=== PATIENT | female | born 1990 | race Two or more races ===

== ENCOUNTER 2019-10-04 12:17 | Inpatient (IN) | payer BC, SELFPAY ==
[2019-10-04] MEDS ORDERED: Sodium Chloride 0.9% 10 ML Syringe FLUSH PRN (12:25)
[2019-10-04] MEDS ORDERED: Lidocaine 1% 50 ML MDV INJECT ONE (12:25)
[2019-10-04] MEDS ORDERED: Acetaminophen 325 MG Tab PO PRN (12:25)
[2019-10-04] MEDS ORDERED: Ondansetron 4 MG/2 ML SDV IVPUSH PRN (12:25)
[2019-10-04] MEDS ORDERED: Calcium Carbonate 500 MG Tab.Chew PO PRN (12:25)
[2019-10-04] MEDS ORDERED: Oxytocin/Lactated Ringers 10 UNIT/1,000 ML BAG IV SCH ×2 (12:30)
[2019-10-04] MEDS: Misoprostol 25 MCG (1/4 of 100 MCG) Tab PO SCH ×3 (14:29→23:27)
--- NOTE | 2019-10-04 15:37 | PCM.LDHP ---
L&D History of Present Illness - General Date of Service: 10/04/19 Admit Problem/Dx: Patient Status Order with Admit Dx/Problem 10/04/19 12:25 Patient Status [ADT] Routine Admission Diagnosis/Problem Admission Diagnosis/Problem - History of Present Illness Introduction:: 28 year old at 40w1 here for induction of labor secondary to decreased movement post ADI with diet controlled gestational diabetes. 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/Metabolic History: Reports: Diabetes, Gestational Social & Family History - Family History Family Medical History: Noncontributory - Tobacco Use Smoking Status *Q: Never Smoker Second Hand Smoke Exposure: No - Recreational Drug Use Recreational Drug Use: No H&P Review of Systems - Review of Systems: Review Of Systems: See Below General: Reports: No Symptoms HEENT: Reports: No Symptoms Pulmonary: Reports: No Symptoms Cardiovascular: Reports: No Symptoms Gastrointestinal: Reports: No Symptoms Genitourinary: Reports: No Symptoms Musculoskeletal: Reports: No Symptoms Skin: Reports: No Symptoms Psychiatric: Reports: No Symptoms Neurological: Reports: No Symptoms Hematologic/Lymphatic: Reports: No Symptoms Immunologic: Reports: No Symptoms L&D Exam - Exam Exam: See Below - Vital Signs Weight: 124.284 kg - OB Specific Contraction Intensity: Mild to Moderate Movement: Active Heart Tones: Present Presentation: Vertex - Smalls Score Smalls Score Cervix Position: Midposition Smalls Score Consistency: Medium Smalls Score Effacement: 51-70% Smalls Score Dilation: 1-2 cm Smalls Score Infant's Station: -3 Smalls Score Total: 5 - Exam General: Alert, Oriented HEENT: PERRLA, Conjunctiva Clear, EACs Clear, EOMI, Hearing Intact, Mucosa Moist & [place], Nares Patent, Normal Nasal Septum, Posterior Pharynx Clear, TMs Clear Neck: Supple, Trachea Midline Lungs: Clear to Auscultation, Normal Respiratory Effort Cardiovascular: Regular Rate, Regular Rhythm GI/Abdominal Exam: Normal Bowel Sounds, Soft, Non-Tender, No Organomegaly, No Distention, No Abnormal Bruit, No Mass, Pelvis Stable Extremities: Normal Inspection, Normal Range of Motion, Non-Tender, No Pedal Edema, Normal Capillary Refill Skin: Warm, Dry, Intact Neurological: Cranial Nerves Intact, Reflexes Equal Bilateral Psychiatric: Alert, Normal Affect, Normal Mood - Patient Data Lab Results Last 24 hrs: Laboratory Results - last 24 hr 10/04/19 10/04/19 10/04/19 Range/Units 12:46 12:46 13:25 WBC 8.81 (3.98-10.04) K/mm3 RBC 4.32 (3.98-5.22) M/mm3 Hgb 11.1 L (11.2-15.7) gm/dl Hct 35.1 (34.1-44.9) % MCV 81.3 (79.4-94.8) fl MCH 25.7 (25.6-32.2) pg MCHC 31.6 L (32.2-35.5) g/dl RDW Std Deviation 43.1 (36.4-46.3) fL Plt Count 308 (182-369) K/mm3 MPV 10.3 (9.4-12.3) fl Neut % (Auto) 76.0 H (34.0-71.1) % Lymph % (Auto) 18.6 L (19.3-51.7) % [place] % (Auto) 4.5 L (4.7-12.5) % Eos % (Auto) 0.6 L (0.7-5.8) Baso % (Auto) 0.1 (0.1-1.2) % Neut # (Auto) 6.69 H (1.56-6.13) K/mm3 Lymph # (Auto) 1.64 (1.18-3.74) K/mm3 [place] # (Auto) 0.40 H (0.24-0.36) K/mm3 Eos # (Auto) 0.05 (0.04-0.36) K/mm3 Baso # (Auto) 0.01 (0.01-0.08) K/mm3 COVID-19 ([facility]) Negative (NEGATIVE) Blood Type O POSITIVE Gel Antibody Screen Negative Result Diagrams: 10/04/19 12:46 Problem List Initiated/Reviewed/Updated: Yes Orders Last 24hrs: Active Orders 24 hr Category Date Time Status Patient Status [ADT] Routine ADT 10/04/19 12:25 Active Activity as Tolerated [RC] PFP Care 10/04/19 12:25 Active Blood Glucose Check, Bedside [RC] TIDAC Care 10/04/19 12:32 Active Communication Order [RC] ASDIRECTED Care 10/04/19 12:25 Active Heart Tones [RC] ASDIRECTED Care 10/04/19 12:26 Active Non Stress Test [RC] PER UNIT ROUTINE Care 10/04/19 12:25 Active Notify Provider [RC] PFP Care 10/04/19 12:25 Active Notify Provider [RC] PRN Care 10/04/19 12:25 Active Peripheral IV Care [RC] . DIRECTED Care 10/04/19 12:26 Active Vital Signs [RC] PER UNIT ROUTINE Care 10/04/19 12:25 Active Regular Diet [DIET] Diet 10/04/19 Dinner Active PATIENT RETYPE [BBK] Routine Lab 10/04/19 14:04 Ordered RAPID PLASMA REAGIN,RPR [CHEM] Routine Lab 10/04/19 12:46 Received Acetaminophen [Tylenol] Med 10/04/19 12:25 Active 650 mg PO Q4H PRN Calcium Carbonate [Tums] Med 10/04/19 12:25 Active 1,000 mg PO Q2H PRN Lactated Ringers [Ringers, Lactated] 1,000 ml Med 10/04/19 12:30 Active IV ASDIRECTED Nalbuphine [Nubain] Med 10/04/19 12:25 Active 10 mg IVPUSH Q2H PRN Ondansetron [Zofran] Med 10/04/19 12:25 Active 4 mg IVPUSH Q4H PRN Oxytocin/Lactated Ringers [Pitocin in LR 10 Units/1,000 Med 10/04/19 12:30 Active ML] 10 unit in 1,000 ml IV .CONTINUOUS Oxytocin/Lactated Ringers [Pitocin in LR 10 Units/1,000 Med 10/04/19 12:30 Active ML] 10 unit in 1,000 ml IV .CONTINUOUS Sodium Chloride 0.9% [Saline Flush] Med 10/04/19 12:25 Active 10 ml FLUSH ASDIRECTED PRN miSOPROStoL [Cytotec] Med 10/04/19 14:30 Active 25 mcg PO Q4H Electronic Heart Tones Ext w TOCO [WOMSER] Ot 10/04/19 12:25 Ordered Routine Electronic Heart Tones Internal [WOMSER] Per Unit Ot 10/04/19 12:25 Ordered Routine Peripheral IV Insertion Adult [OM.PC] Routine Ot 10/04/19 12:25 Ordered Resuscitation Status Routine Resus Stat 10/04/19 12:25 Ordered Medication Orders Acetaminophen (Tylenol) 650 mg PO Q4H PRN PRN Reason: Pain (Mild 1-3) and fever Calcium Carbonate/Glycine (Tums) 1,000 mg PO Q2H PRN PRN Reason: Indigestion Oxytocin/Lactated Ringer's (Pitocin In Lr 10 Units/1,000 Ml) 10 unit in 1,000 mls @ 100 mls/hr IV .CONTINUOUS KAMARI Oxytocin/Lactated Ringer's (Pitocin In Lr 10 Units/1,000 Ml) 10 unit in 1,000 mls @ 500 mls/hr IV .CONTINUOUS KAMARI Lactated Ringer's (Ringers, Lactated) 1,000 mls @ 100 mls/hr IV ASDIRECTED [facility] Misoprostol (Cytotec) 25 mcg PO Q4H KAMARI Stop: 10/04/19 22:31 Last Admin: 10/04/19 14:29 Dose: 25 mcg Documented by: ELISEO Nalbuphine HCl (Nubain) 10 mg IVPUSH Q2H PRN PRN Reason: Pain Ondansetron HCl (Zofran) 4 mg IVPUSH Q4H PRN PRN Reason: Nausea/Vomiting Sodium Chloride (Saline Flush) 10 ml FLUSH ASDIRECTED PRN PRN Reason: Keep Vein Open Assessment/Plan Comment:: Induction for gestational diabetes and elevated blood pressures. AROM and cytotec Anesthesia consult
[2019-10-04] MEDS ORDERED: fentaNYL 100 MCG/2 ML SDV EPIDUR PRN (19:46)
[2019-10-04] MEDS ORDERED: ePHEDrine 50 MG/ML SDV IVPUSH PRN (19:46)
[2019-10-04] MEDS ORDERED: diphenhydrAMINE 50 MG/ML SDV IVPUSH PRN (19:46)
[2019-10-04] MEDS ORDERED: Bupivacaine/fentaNYL/NS 100 ML Bag EPIDUR PRN (19:46)
--- NOTE | 2019-10-04 19:46 | PCM.PREANE ---
Preanesthetic Assessment - Procedure Proposed Procedure: Labor Epidural - Anesthesia/Transfusion/Family Hx Anesthesia History: No Prior Anesthesia Transfusion History: No Prior Transfusion(s) - Review of Systems General: No Symptoms Pulmonary: No Symptoms Cardiovascular: No Symptoms Gastrointestinal: No Symptoms Neurological: No Symptoms Other: Reports: None (Morbid Obesity BMI 50), Diabetes - Physical Assessment Vital Signs: Last Vital Signs Temp 36.3 C 10/04/19 12:25 Pulse 94 10/04/19 12:25 Resp 16 10/04/19 12:25 BP 118/54 L 10/04/19 12:25 Pulse Ox 98 10/04/19 12:25 Height: 1.57 m Weight: 124.284 kg ASA Class: 3 Mental Status: Alert & Oriented x3 Airway Class: Mallampati = 2 Dentition: Reports: Normal Dentition Thyro-Mental Finger Breadths: 3 Mouth Opening Finger Breadths: 3 ROM/Head Extension: Full Lungs: Clear to Auscultation, Normal Respiratory Effort Cardiovascular: Regular Rate, Regular Rhythm - Lab Values: Laboratory Last Values WBC 8.81 K/mm3 (3.98-10.04) 10/04/19 12:46 RBC 4.32 M/mm3 (3.98-5.22) 10/04/19 12:46 Hgb 11.1 gm/dl (11.2-15.7) L 10/04/19 12:46 Hct 35.1 % (34.1-44.9) 10/04/19 12:46 MCV 81.3 fl (79.4-94.8) 10/04/19 12:46 MCH 25.7 pg (25.6-32.2) 10/04/19 12:46 MCHC 31.6 g/dl (32.2-35.5) L 10/04/19 12:46 RDW Std Deviation 43.1 fL (36.4-46.3) 10/04/19 12:46 Plt Count 308 K/mm3 (182-369) 10/04/19 12:46 MPV 10.3 fl (9.4-12.3) 10/04/19 12:46 Neut % (Auto) 76.0 % (34.0-71.1) H 10/04/19 12:46 Lymph % (Auto) 18.6 % (19.3-51.7) L 10/04/19 12:46 [place] % (Auto) 4.5 % (4.7-12.5) L 10/04/19 12:46 Eos % (Auto) 0.6 (0.7-5.8) L 10/04/19 12:46 Baso % (Auto) 0.1 % (0.1-1.2) 10/04/19 12:46 Neut # (Auto) 6.69 K/mm3 (1.56-6.13) H 10/04/19 12:46 Lymph # (Auto) 1.64 K/mm3 (1.18-3.74) 10/04/19 12:46 [place] # (Auto) 0.40 K/mm3 (0.24-0.36) H 10/04/19 12:46 Eos # (Auto) 0.05 K/mm3 (0.04-0.36) 10/04/19 12:46 Baso # (Auto) 0.01 K/mm3 (0.01-0.08) 10/04/19 12:46 POC Glucose 74 mg/dL (70-105) 10/04/19 15:26 COVID-19 ([facility]) Negative (NEGATIVE) 10/04/19 13:25 Blood Type O POSITIVE 10/04/19 12:46 Gel Antibody Screen Negative 10/04/19 12:46 - Allergies Allergies/Adverse Reactions: Allergies Allergy/AdvReac Type Severity Reaction Status Date / Time No Known Allergies Allergy Verified 10/04/19 12:25 - Acknowledgements Anesthesia Type Planned: Epidural Pt an Appropriate Candidate for the Planned Anesthesia: Yes Alternatives and Risks of Anesthesia Discussed w Pt/Guardian: Yes Pt/Guardian Understands and Agrees with Anesthesia Plan: Yes Additional Comments: Wilfrido understands an epidural placement may be challenging as bony landmarks are unable to be palpated, and multiple attempts with out success may occur. All questions answered at this time. She currently desires a natural and has been counseled on the requesting an epidural placement early to assist with proper positioning and placement. 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/Metabolic History: Reports: Diabetes, Gestational - SUBSTANCE USE Smoking Status *Q: Never Smoker Second Hand Smoke Exposure: No Recreational Drug Use History: No - HOME MEDS Home Medications: Home Meds Prenat 115/Iron Fum/Folic/Dss [ 19 Tablet] 1 each PO DAILY 10/04/19 [History] - CURRENT (IN HOUSE) MEDS Current Meds: Current Medications Acetaminophen (Tylenol) 650 mg PO Q4H PRN PRN Reason: Pain (Mild 1-3) and fever Calcium Carbonate/Glycine (Tums) 1,000 mg PO Q2H PRN PRN Reason: Indigestion Oxytocin/Lactated Ringer's (Pitocin In Lr 10 Units/1,000 Ml) 10 unit in 1,000 mls @ 100 mls/hr IV .CONTINUOUS KAMARI Oxytocin/Lactated Ringer's (Pitocin In Lr 10 Units/1,000 Ml) 10 unit in 1,000 mls @ 500 mls/hr IV .CONTINUOUS KAMARI Lactated Ringer's (Ringers, Lactated) 1,000 mls @ 100 mls/hr IV ASDIRECTED KAMARI Misoprostol (Cytotec) 25 mcg PO Q4H KAMARI Stop: 10/04/19 22:31 Last Admin: 10/04/19 18:32 Dose: 25 mcg Documented by: Nalbuphine HCl (Nubain) 10 mg IVPUSH Q2H PRN PRN Reason: Pain Ondansetron HCl (Zofran) 4 mg IVPUSH Q4H PRN PRN Reason: Nausea/Vomiting Sodium Chloride (Saline Flush) 10 ml FLUSH ASDIRECTED PRN PRN Reason: Keep Vein Open Discontinued Medications Lidocaine HCl (Xylocaine 1%) 50 ml INJECT ONETIME ONE Stop: 10/04/19 12:26
[2019-10-05] MEDS: Lactated Ringers 1,000 ML IV SCH ×3 (00:52→10:09)
[2019-10-05] MEDS ORDERED: Oxytocin/Lactated Ringers 10 UNIT/1,000 ML BAG IV SCH (01:30)
[2019-10-05] MEDS: Nalbuphine 10 MG/ML Syringe IVPUSH PRN ×2 (04:49→10:10)
--- NOTE | 2019-10-05 09:55 | PCM.SN.2 ---
- Free Text/Narrative Note: Wilfrido 's 28-year-old 1 para 0 female was admitted on 10/04/2019 with diagnosis of decreased activity and underwent induction of labor with Pitocin and artificial rupture membranes. Artificial rupture membranes was at approximately 1400 hrs. on 10/04/2019. Since that time patient has made slow progress but presently is at 4 cm, 95% effacement, -2 station, cephalic presentation, anterior position, very soft consistency. heart tones are generally reassuring area. Patient has had fairly good pain relief with Nubain IV. She wishes to do a natural labor. Assessment: 1. 40-2/7 week gestational age female with slow labor progress but with dilation of cervix as above. 2. Patient desires natural labor course but has had some Nubain IV with good relief 3. Group B strep screen negative 4. Vital signs been stable. Patient is afebrile. Plan: 1. Routine labor care. Monitor heart tones and contractions closely. IUPC is in place. 2. Monitor for onset of any infection symptoms. 3. Anticipate .
[2019-10-05] MEDS ORDERED: Citric Acid/Sodium Citrate Solution 30 ML Cup ONE (15:42)
[2019-10-05] MEDS ORDERED: Metoclopramide 10 MG/2 ML SDV ONE (15:42)
[2019-10-05] MEDS ORDERED: Ondansetron 4 MG/2 ML SDV ONE (15:57)
[2019-10-05] MEDS ORDERED: Oxytocin 10 Units/1 ML SDV ONE (15:57)
[2019-10-05] MEDS ORDERED: Morphine PF 1 MG/ML Amp ONE (15:57)
[2019-10-05] MEDS ORDERED: Ketorolac 30 MG/ML SDV ONE (15:57)
[2019-10-05] MEDS ORDERED: Lactated Ringers 2,000 ML ONE (15:57)
[2019-10-05] MEDS ORDERED: ceFAZolin 1 GM Vial ONE ×2 (15:57→15:58)
--- NOTE | 2019-10-05 15:57 | PCM.SN.2 ---
- Free Text/Narrative Note: Progress note: Wilfrido is a 28-year-old 1 para 0 female who has been in labor since yesterday 10/04/2019. She was seen in clinic at that time and was noted to have decreased movement. She is gestational diabetic. She underwent induction of labor with AROM and Pitocin. She progressed steadily to approximately 6-8 cm and then more slowly to what is now probably 9 cm. Slow progression of labor is somewhat worrisome because of the confirmed adequacy of labor with IUPC and the amount of time3-4 hours necessary to achieve the last bit of cervical dilation. She now appears somewhat stalled at this cervical dilation. The head is at about a 0 station with significant caput formation. Clinical exam shows the pelvis is reasonably filled with the baby's head with what was felt to be possibly less than optimal AP diameter. This is felt to increase the potential risks for shoulder dystocia. Discussion is held with patient has to concerns listed above. I have discussed the option of primary section through Pfannenstiel incision under a regional block, risks, benefits, follow-up and postoperative course. She appears to understand and wishes to proceed. Consent is signed. Assessment: 1. 40+ week intrauterine , failure to progress, history of gestational diabetes with suspected large baby. Patient desires section at this time. 2. Risks include the following: Gestational diabetes, obesity Plan: 1. Preop labs to be completed 2. Ancefweight appropriate dose to be given 3. SCDs prior to surgery for DVT prophylaxis 4. Dr. Rogel to attend as software deployment engineer.
[2019-10-05] MEDS ORDERED: Bupivacaine 0.75%/D5W 2 ML Amp ONE (15:58)
[2019-10-05] MEDS ORDERED: Bupivacaine 0.5% 30 ML SDV ONE (16:00)
[2019-10-05] MEDS ORDERED: Azithromycin 500 MG in Sodium Chloride 0.9% 250 ML IV ONE (16:10)
[2019-10-05] MEDS ORDERED: diphenhydrAMINE 50 MG/ML SDV IVPUSH PRN ×3 (17:10→19:17)
[2019-10-05] MEDS ORDERED: Ondansetron 4 MG/2 ML SDV IVPUSH PRN (17:10)
[2019-10-05] MEDS ORDERED: fentaNYL 100 MCG/2 ML SDV IVPUSH PRN (17:10)
[2019-10-05] MEDS ORDERED: Lactated Ringers 1,000 ML ONE (17:17)
--- NOTE | 2019-10-05 17:53 | PCM.POSTAN ---
POST ANESTHESIA ASSESSMENT - MENTAL STATUS Mental Status: Alert, Oriented - VITAL SIGNS Vital Signs: Last Vital Signs Temp 36.3 C 10/04/19 12:25 Pulse 94 10/04/19 12:25 Resp 16 10/04/19 12:25 BP 118/54 L 10/04/19 12:25 Pulse Ox 98 10/04/19 12:25 1745 90/41 97 100% 18 99.2F - RESPIRATORY Respiratory Status: Respiratory Rate WNL, Airway Patent, O2 Saturation Stable - CARDIOVASCULAR CV Status: Pulse Rate WNL, Blood Pressure Stable - GASTROINTESTINAL GI Status: No Symptoms - PAIN Pain Score: 0 - POST OP HYDRATION Hydration Status: Adequate & Stable
--- NOTE | 2019-10-05 17:56 | PCM.OPNOTE ---
- General Post-Op/Procedure Note Date of Surgery/Procedure: 10/05/19 Operative Procedure(s): Primary lower uterine segment transverse section through Pfannenstiel skin incision under spinal block. Findings: Uterus tubes ovaries appeared be normal for term . Significant adiposit y involving the anterior abdominal wall. The baby was in a vertex presentation. Amniotic fluid was clear. Baby weighed 8 lbs. 9 oz (3883 g), was born at 1700 hrs. on 10/05/2019. There was a nuchal cord 1. Baby's head was in an occiput transverse position. Pre Op Diagnosis: 1. 40+ week intrauterine . 2. Failure to progress. 3. Gestational diabetes Post-Op Diagnosis: Same Anesthesia Technique: Spinal Other Anesthesia Type: Marcaine 0.5%20 mL totallocal Primary Surgeon: Eduin Torrez Anesthesia Provider: Ginger Bryant Ride Operator: Nikki Lo Reason Ride Operator Was Necessary: Assistance, retraction, patient safety, quantity of care. Fluid Replacement, Intraop: 2,000 Output, Urine Amount: 200 EBL in mLs: 800 Drain/Tube Comments:: Indwelling bladder catheter Complications: None Condition: Good Free Text/Narrative:: Intake & Output 10/05/19 10/05/19 10/05/19 06:59 14:59 22:59 Intake Total 1999 Balance 1999 Surgery duration: 44 minutes Surgery duration: Procedure: The patient is appropriately consented. Patient was transferred to the room and placed in a sitting position. Spinal anesthesia was administered. After confirmation of adequate anesthesia patient was placed in a supine position with a wedge under her right side to facilitate left lateral positioning. C track panniculus retractor was then applied. The patient was prepped and draped in usual fashion after Lazaro catheter was already placed . The anesthetic was checked and found to be adequate. 20 mL of Marcaine 0.5% was injected locally in the Pfannenstiel incision site. The Pfannenstiel skin i ncision was then made and carried down through skin, subcutaneous and fascial layers. The fascia was then undermined superiorly and inferiorly to allow for adequate operating room. The recti muscles midline and preperitoneal fat was bluntly dissected. Peritoneal cavity was entered longitudinally. The vesicouterine peritoneum was then incised transversely and bladder flap was developed. Myometrium was incised transversely to the level of the amniotic sac. This incision was extended bilaterally in a blunt fashion. The amniotic sac was then ruptured resulting in clear amniotic fluid. A hand is placed in the low uterine segment and the baby's head was brought forth through the incision. The baby was completely delivered using fundal pressure in a routine fashion. The nose and mouth were bulb suctioned. Baby's cord was clamped x2 cut and baby was handed off to attending job lithographer Dr Rogel. Placenta was expressed after cord blood was obtained. All fragments of the membranes were removed under direct visualization. Uterus was then exteriorized to allow for easier closure. The cervix was assessed and found to be dilated adequately to allow egress of blood. The uterus was closed in 2 layers. The first layer a running locked suture of 0 Monocryl, the second layer a running locked vertical mattress suture of 0 Monocryl. [id number] suture was placed at mid incision to control 1 bleeder. Hemostasis confirmed at this time. Sponge instrument needle counts are correct. The uterus was returned to the abdominal cavity and lateral gutters were cleared of blood. Once again sponge needle counts are correct. The anterior abdominal wall was closed with a #1 PDS suture from angle to angle. The subcutaneous area was found to be free of any bleeders. interrupted sutures of 3-0 Monocryl were used to reapproximate the subcutaneous layer.Skin was closed with a running subcuticular stitch of 3-0 Monocryl in a vertical mattress suture fashion using a Vasyl needle. Prineo mesh/glue was then applied to further approximate the incision. It should be noted that patient received 3 g of Ancef and azithromycin IV per protocol preoperatively for infection prophylaxis and had Pitocin infused after delivery of the placenta to facilitate uterine contraction. She also had sequential compression stockings in place for DVT prophylaxis. Patient was discharged from the operating room in satisfactory condition.
[2019-10-05] MEDS ORDERED: ePHEDrine 50 MG/ML SDV IVPUSH PRN ×2 (19:17)
[2019-10-05] MEDS ORDERED: Naloxone 0.4 MG/ML SDV IVPUSH PRN ×2 (19:17)
[2019-10-05] MEDS ORDERED: Dextrose 5%-Lactated Ringers 1,000 ML IV SCH ×2 (19:17)
[2019-10-05] MEDS ORDERED: Ondansetron 4 MG/2 ML SDV IV PRN (19:17)
[2019-10-05] MEDS: Simethicone 80 MG Tab.Chew PO SCH (20:51)
[2019-10-05] MEDS ORDERED: Citric Acid/Sodium Citrate Solution 30 ML Cup PO ONE (21:21)
[2019-10-05] MEDS ORDERED: Metoclopramide 10 MG/2 ML SDV IVPUSH ONE (21:21)
[2019-10-05] MEDS: Ibuprofen 800 MG Tab PO SCH (22:15)
[2019-10-06] MEDS ORDERED: Lactated Ringers 1,000 ML IV ONE (01:16)
[2019-10-06] MEDS: Ibuprofen 800 MG Tab PO SCH ×3 (05:53→22:01)
[2019-10-06] MEDS: Prenatal Multivitamin with Calcium/Folic Acid/Iron Tab PO SCH (09:17)
[2019-10-06] MEDS: Docusate Sodium 100 MG Cap PO PRN (09:17)
[2019-10-06] MEDS: Acetaminophen/oxyCODONE 325-5 MG Tab PO PRN ×2 (09:18→18:37)
[2019-10-06] MEDS: Simethicone 80 MG Tab.Chew PO SCH ×4 (09:20→22:01)
[2019-10-07] MEDS: Acetaminophen/oxyCODONE 325-5 MG Tab PO PRN ×4 (03:28→22:17)
[2019-10-07] MEDS: Ibuprofen 800 MG Tab PO SCH ×3 (06:58→21:12)
--- NOTE | 2019-10-07 07:33 | PCM48HPAN ---
Post Anesthesia Note - EVALUATION WITHIN 48HRS OF ANESTHETIC Vital Signs in Normal Range: Yes Patient Participated in Evaluation: Yes Respiratory Function Stable: Yes Airway Patent: Yes Cardiovascular Function Stable: Yes Hydration Status Stable: Yes Pain Control Satisfactory: Yes Nausea and Vomiting Control Satisfactory: Yes Mental Status Recovered: Yes Vital Signs: Last Vital Signs Temp 97.9 F 10/07/19 03:21 Pulse 109 H 10/07/19 03:21 Resp 16 10/07/19 03:21 BP 114/46 L 10/07/19 03:21 Pulse Ox 99 10/07/19 03:21 - COMMENTS/OBSERVATIONS Free Text/Narrative:: Rests in bed. no complaints
[2019-10-07] MEDS: Prenatal Multivitamin with Calcium/Folic Acid/Iron Tab PO SCH (08:11)
[2019-10-07] MEDS: Simethicone 80 MG Tab.Chew PO SCH ×4 (08:11→21:12)
[2019-10-07] MEDS: Docusate Sodium 100 MG Cap PO PRN (08:14)
--- NOTE | 2019-10-07 09:31 | PCM.SN.2 ---
- Free Text/Narrative Note: note: Patient is doing well in the period. Minimal lochia, voiding well, ambulated without problems. Nursing without concerns. Patient reports pain is under good control. Baby still on antibiotics but hopefully will be off today. Patient is afebrile, vital signs are stable Abdomen is flat, soft, uterus is below the umbilicus and is firm and nontender. Incision shows the area of the perineal mesh to be dry and intact. Legs are nontender. 1+ pitting edema noted bilaterally Assessment: /post operative day #1 recovery going well. Plan: Routine care. Patient be discharged home within the next 24-48 hours.
[2019-10-08] MEDS: Acetaminophen/oxyCODONE 325-5 MG Tab PO PRN ×2 (03:50→11:01)
[2019-10-08] MEDS: Ibuprofen 800 MG Tab PO SCH (06:16)
[2019-10-08] MEDS: Prenatal Multivitamin with Calcium/Folic Acid/Iron Tab PO SCH (09:18)
[2019-10-08] MEDS: Simethicone 80 MG Tab.Chew PO SCH (09:18)
--- NOTE | 2019-10-08 10:55 | PCM.DCSUM1 ---
Discharge Summary - Hospital Course Free Text/Narrative:: Wilfrido was admitted on 10/04/2019 for induction of labor secondary by Dr. Ely Winters for 39 weeks gestational age and history of gestational diabetes. She underwent induction of labor which was a slow process and patient proceeded to approximately 8-9 cm by the noon of 10/05/2019 at that time she stalled for approximately 3-4 hours despite objectively evaluated adequate labor. Decision was made to proceed to section with the diagnosis of failure to progress secondary to cephalopelvic disproportion in light of the patient's diagnosis of gestational diabetes and her body habitus. She underwent a primary lower uterine segment transverse section through Pfannenstiel skin incision under spinal block. At the time surgery findings were as follows: Uterus tubes ovaries appeared be normal for term . Significant adiposity involving the anterior abdominal wall. The baby was in a vertex presentation. Amniotic fluid was clear. Baby weighed 8 lbs. 9 oz (3883 g), was born at 1700 hrs. on 10/05/2019. There was a nuchal cord 1. Baby's head was in an occiput transverse position. Post op Diagnosis: 1. 40+ week intrauterine . 2. Failure to progress. 3. Gestational diabetes Postoperative patient is done very well. Her vital signs are stable. She is afebrile. Abdominal incision is healing very well. Prineo mesh is in place over the abdominal incision. The incision appears intact without any evidence of infection, discharge, hematoma or seroma. She is nursing without problems, ambulating well and has minimal lochia. She has pain well controlled with ibuprofen and Percocet. She is desiring discharge home on postoperative day 3. Diagnosis: Stroke: No - Discharge Data Discharge Date: 10/08/19 Discharge Disposition: Home, Self-Care 01 Condition: Good - Referral to Home Health Primary Care Physician: Ely Winters MD - Patient Summary/Data Operative Procedure(s) Performed: Primary lower uterine segment transverse section through Pfannenstiel skin incision under spinal block. - Patient Instructions Diet: Regular Diet as Tolerated (Nursing diet with increased calories and calcium as recommended) Diet, Other: Nursing diet Activity: As Tolerated, No Strenuous Activities Driving: Do Not Drive Driving, Other: Do not drive while on narcotic Showering/Bathing: May Shower, No Tub Bathing/Swimming Wound/Incision Care: Keep Operative Site/Wound Site Clean and Dry Notify Provider of: Fever, Increased Pain, Swelling and Redness, Drainage, Nausea and/or Vomiting - Discharge Plan Home Medications: Home Meds Prenat 115/Iron Fum/Folic/Dss [ 19 Tablet] 1 each PO DAILY 10/04/19 [History] Patient Handouts: Care After Delivery, Breast Pumping Tips, [id number] Referrals: Ely Winters MD [Primary Care Provider] - (Call [facility] to make follow up appointment in 2 weeks) - Discharge Summary/Plan Comment DC Time >30 min.: No Discharge Summary/Plan Comment: Discharge instructions: 1. Discharge home 2. Diet, activity and follow-up discussed with patient. Recommend nursing diet with increased calories and calcium. 3. Precautions given concern increased pain, bleeding, temperature, signs/symptoms of DVT/PE. 4. Medications per home medication was printed, discussed with and given to the patient. 5. Return to clinic-Dr. Winters at to call for an appointment. Diagnosis: 1. Term -delivered by primary low uterine segment transverse section through Pfannenstiel skin incision under spinal block. Diagnosis failure to progress secondary to cephalopelvic disproportion. Condition: Good - Patient Data Vitals - Most Recent: Last Vital Signs Temp 36.6 C 10/08/19 08:21 Pulse 77 10/08/19 08:21 Resp 18 10/08/19 08:21 BP 128/50 L 10/08/19 08:21 Pulse Ox 100 10/08/19 08:21 Weight - Most Recent: 124.284 kg I&O - Last 24 hours: Intake & Output 10/07/19 10/08/19 10/08/19 22:59 06:59 14:59 Intake Total 360 Balance 360 Med Orders - Current: Current Medications Diphenhydramine HCl (Benadryl) 25 mg IVPUSH Q6H PRN PRN Reason: Itching or Nausea Docusate Sodium (Colace) 100 mg PO Q12H PRN PRN Reason: Constipation Last Admin: 10/07/19 08:14 Dose: 100 mg Documented by: Ephedrine Sulfate (Ephedrine Sulfate) 5 mg IVPUSH SEECOMMENT PRN PRN Reason: Other Ibuprofen (Motrin) 800 mg PO Q8H [facility] Last Admin: 10/08/19 06:16 Dose: 800 mg Documented by: Naloxone HCl (Narcan) 0.1 mg IVPUSH SEECOMMENT PRN PRN Reason: Respiratory Depression Ondansetron HCl (Zofran) 4 mg IV Q4H PRN PRN Reason: Nausea/Vomiting Oxycodone/Acetaminophen (Percocet 325-5 Mg) 1 tab PO Q4H PRN PRN Reason: Pain (moderate 4-6) Last Admin: 10/08/19 03:50 Dose: 1 tab Documented by: Oxycodone/Acetaminophen (Percocet 325-5 Mg) 2 tab PO Q4H PRN PRN Reason: Pain (severe 7-10) Last Admin: 10/07/19 08:11 Dose: 2 tab Documented by: Prenat Multivit/Insurance Auditor/Iron/Folic Ac ( Plus Iron) 1 each PO DAILY [facility] Last Admin: 10/07/19 08:11 Dose: 1 each Documented by: Simethicone (Simethicone) 160 mg PO QID [facility] Last Admin: 10/07/19 21:12 Dose: 160 mg Documented by: Discontinued Medications Acetaminophen (Tylenol) 650 mg PO Q4H PRN PRN Reason: Pain (Mild 1-3) and fever Bupivacaine HCl (Marcaine 0.5%) Confirm Administered Dose 30 ml .ROUTE .STK-MED ONE Stop: 10/05/19 16:01 Last Admin: 10/05/19 16:55 Dose: 20 ml Documented by: Bupivacaine HCl/Dextrose (Marcaine 0.75% Spinal) Confirm Administered Dose 2 ml .ROUTE .STK-MED ONE Stop: 10/05/19 15:59 Calcium Carbonate/Glycine (Tums) 1,000 mg PO Q2H PRN PRN Reason: Indigestion Cefazolin Sodium (Ancef) Confirm Administered Dose 2 gm .ROUTE .STK-MED ONE Stop: 10/05/19 15:58 Cefazolin Sodium (Ancef) Confirm Administered Dose 1 gm .ROUTE .STK-MED ONE Stop: 10/05/19 15:59 Citric Acid/Sodium Citrate (Bicitra Solution) Confirm Administered Dose 30 ml .ROUTE .STK-MED ONE Stop: 10/05/19 15:43 Last Admin: 10/05/19 15:47 Dose: 30 ml Documented by: Citric Acid/Sodium Citrate (Bicitra Solution) 30 ml PO ONETIME ONE Stop: 10/05/19 21:22 Last Admin: 10/05/19 21:24 Dose: Not Given Documented by: Diphenhydramine HCl (Benadryl) 25 mg IVPUSH Q6H PRN PRN Reason: pruritis Diphenhydramine HCl (Benadryl) 25 mg IVPUSH Q6H PRN PRN Reason: Pruritis Diphenhydramine HCl (Benadryl) 25 mg IVPUSH Q6H PRN PRN Reason: Itching or Nausea Ephedrine Sulfate (Ephedrine Sulfate) 5 mg IVPUSH ASDIRECTED PRN PRN Reason: Hypotension Ephedrine Sulfate (Ephedrine Sulfate) 5 mg IVPUSH SEECOMMENT PRN PRN Reason: Other Fentanyl (Sublimaze) 100 mcg EPIDUR Q3H PRN PRN Reason: Pain Fentanyl (Sublimaze) 50 mcg IVPUSH Q5M PRN PRN Reason: Pain Fentanyl/Bupivacaine HCl (Fentanyl/Bupivacaine/Ns 2 Mcg-0.125% 100 Ml) 100 ml EPIDUR ASDIRECTED PRN PRN Reason: Pain Oxytocin/Lactated Ringer's (Pitocin In Lr 10 Units/1,000 Ml) 10 unit in 1,000 mls @ 100 mls/hr IV .CONTINUOUS [facility]AM[facility]I Oxytocin/Lactated Ringer's (Pitocin In Lr 10 Units/1,000 Ml) 10 unit in 1,000 mls @ 500 mls/hr IV .CONTINUOUS KAMARI Lactated Ringer's (Ringers, Lactated) 1,000 mls @ 100 mls/hr IV ASDIRECTED [facility] Last Infusion: 10/05/19 15:48 Dose: 999 mls/hr Documented by: Oxytocin/Lactated Ringer's (Pitocin In Lr 10 Units/1,000 Ml) 10 unit in 1,000 mls @ 12 mls/hr IV TITRATE KAMARI; Protocol Last Titration: 10/05/19 15:43 Dose: 0 munits/min, 0 mls/hr Documented by: Lactated Ringer's (Ringers, Lactated) Confirm Administered Dose 2,000 mls @ as directed .ROUTE .STK-MED ONE Stop: 10/05/19 15:58 Azithromycin 500 mg/ Sodium (Chloride) 250 mls @ 250 mls/hr IV ONETIME ONE Stop: 10/05/19 17:09 Last Admin: 10/05/19 21:18 Dose: Not Given Documented by: Lactated Ringer's (Ringers, Lactated) Confirm Administered Dose 1,000 mls @ as directed .ROUTE .STK-MED ONE Stop: 10/05/19 17:18 Dextrose/Lactated Ringer's (Dextrose 5%-Lactated Ringers) 1,000 mls @ 125 mls/hr IV ASDIRECTED [facility] Stop: 10/06/19 03:16 Last Infusion: 10/06/19 01:28 Dose: 175 mls/hr Documented by: Dextrose/Lactated Ringer's (Dextrose 5%-Lactated Ringers) 1,000 mls @ 125 mls/hr IV ASDIRECTED [facility] Stop: 10/06/19 03:16 Lactated Ringer's (Ringers, Lactated) 1,000 mls @ 999 mls/hr IV ONETIME ONE Stop: 10/06/19 02:16 Last Admin: 10/06/19 01:27 Dose: 999 mls/hr Documented by: Ketorolac Tromethamine (Toradol) Confirm Administered Dose 30 mg .ROUTE .STK-MED ONE Stop: 10/05/19 15:58 Lidocaine HCl (Xylocaine 1%) 50 ml INJECT ONETIME ONE Stop: 10/04/19 12:26 Last Admin: 10/05/19 21:18 Dose: Not Given Documented by: Metoclopramide HCl (Reglan) Confirm Administered Dose 10 mg .ROUTE .STK-MED ONE Stop: 10/05/19 15:43 Last Admin: 10/05/19 15:47 Dose: 10 mg Documented by: Metoclopramide HCl (Reglan) 10 mg IVPUSH ONETIME ONE Stop: 10/05/19 21:22 Last Admin: 10/05/19 21:25 Dose: Not Given Documented by: Miscellaneous Medication (Phenylephrine 1 Mg/10 Ml-Ns) Confirm Administered Dose 2 mg IV .STK-MED ONE Stop: 10/05/19 17:18 Misoprostol (Cytotec) 25 mcg PO Q4H [facility] Stop: 10/04/19 22:31 Last Admin: 10/04/19 23:27 Dose: Not Given Documented by: Morphine Sulfate (Duramorph Pf) Confirm Administered Dose 1 mg .ROUTE .STK-MED ONE Stop: 10/05/19 15:58 Nalbuphine HCl (Nubain) 10 mg IVPUSH Q2H PRN PRN Reason: Pain Last Admin: 10/05/19 10:10 Dose: 10 mg Documented by: Naloxone HCl (Narcan) 0.1 mg IVPUSH SEECOMMENT PRN PRN Reason: Respiratory Depression Ondansetron HCl (Zofran) 4 mg IVPUSH Q4H PRN PRN Reason: Nausea/Vomiting Ondansetron HCl (Zofran) Confirm Administered Dose 4 mg .ROUTE .STK-MED ONE Stop: 10/05/19 15:58 Ondansetron HCl (Zofran) 4 mg IVPUSH ONETIME PRN PRN Reason: Nausea/Vomiting Oxytocin (Pitocin) Confirm Administered Dose 20 unit .ROUTE .STK-MED ONE Stop: 10/05/19 15:58 Sodium Chloride (Saline Flush) 10 ml FLUSH ASDIRECTED PRN PRN Reason: Keep Vein Open
== END 2019-10-08 11:50 | disposition home or self-care (01) | DRG 540 ==
LOC: JD.OB 12:17 → JD.OBCHECK 12:17 → JD.OB 12:25 → OBSVTOIN 10-05 17:00 → JD.OB 10-05 17:01
PROVIDERS: ADMIT Obstetrics & Gynecology; ATTEND Obstetrics & Gynecology
PROC: 10D00Z1 Extraction of Products of Conception, Low, Open Approach (ICD-10-PCS; principal; 2019-10-05)
PROC: 10907ZC Drainage of Amniotic Fluid, Therapeutic from Products of Conception, Via Natural or Artificial Opening (ICD-10-PCS; 2019-10-05)
PROC: 3E033VJ Introduction of Other Hormone into Peripheral Vein, Percutaneous Approach (ICD-10-PCS; 2019-10-05)
PROC: 10H07YZ Insertion of Other Device into Products of Conception, Via Natural or Artificial Opening (ICD-10-PCS; 2019-10-05)
DX: O48.0 Post-term pregnancy (principal); Z3A.40 40 weeks gestation of pregnancy; Z37.0 Single live birth; O24.429 Gestational diabetes mellitus in childbirth, unspecified control; O62.2 Other uterine inertia; O76 Abnormality in fetal heart rate and rhythm complicating labor and delivery; O69.81X0 Labor and delivery complicated by cord around neck, without compression, not applicable or unspecified; Z11.59 Encounter for screening for other viral diseases
CPT/HCPCS: 01961; 36415; 51702; 59025; 82962; 85025; 86592; 86850; 86900; 86901; A9270-GY; J0690; J1885; J2274; J2300; J2370; J2405; J2590; J2765; J3490; J7120; J7121; U0002